=== PATIENT | male | born 1955 | race Caucasian/White ===

== ENCOUNTER 2023-08-12 11:19 | Emergency (ER) | payer MEDICARE, BC ==
[~2023-08-12 11:19] MED LIST: Aspirin 81 MG Tab.Chew PO ONE; Sodium Chloride 0.9% 1,000 ML ONE; Sodium Chloride 0.9% 10 ML Syringe FLUSH PRN
[2023-08-12 11:45] LABS: BASOPHILS ABSOLUTE AUTO 0.03 10^3/uL (0.00-0.50); BASOPHILS PERCENT AUTO 0.5 % (0-1); EOSINOPHILS ABSOLUTE AUTO 0.02 10^3/uL (0.00-1.50); EOSINOPHILS PERCENT AUTO 0.3 % (0-6); HEMATOCRIT 48.8 % (42.0-52.0); HEMOGLOBIN 16.5 g/dL (14.0-18.0); IMMATURE GRAN ABSOLUTE AUTO 0.01 10^3/uL (0.00-0.49); IMMATURE GRAN PERCENT AUTO 0.2 % (0.0-4.9); LYMPHOCYTES PERCENT AUTO 10.4 % (24-44); MEAN CORPUSCULAR HEMOGLOBIN 28.7 pg (27.0-32.0); MEAN CORPUSCULAR HGB CONC 33.8 g/dL (32.0-36.0); MEAN CORPUSCULAR VOLUME 84.9 fL (83.0-97.0); MONOCYTES ABSOLUTE AUTO 1.42 10^3/uL (0.00-1.50); MONOCYTES PERCENT AUTO 24.6 % (0-10); NEUTROPHILS ABSOLUTE AUTO 3.69 x10^3/uL (1.80-8.00); PLATELET COUNT,PLT 127 10^3/uL (150-400); RED BLOOD CELL COUNT 5.75 x10^6/uL (4.50-6.00); WHITE BLOOD CELL COUNT,WBC 5.8 10^3/uL (4.0-11.0)
[2023-08-12 11:53] LABS: INR 1.19 (0.92-1.18); PROTHROMBIN TIME 12.2 SEC (9.3-11.3)
[2023-08-12] MEDS ORDERED: Acetaminophen 325 MG Tab PO ONE (11:56)
[2023-08-12 12:09] LABS: ALBUMIN 3.8 g/dL (3.4-5.0); BILIRUBIN TOTAL 0.6 mg/dL (0.0-1.0); CALCIUM 8.3 mg/dL (8.4-10.1); CREATININE 1.2 mg/dL (0.7-1.3); EST CRCL DRUG DOSING (CG) 56.61 mL/min; MAGNESIUM 1.7 mg/dL (1.8-2.4); POTASSIUM,K 4.1 mEq/L (3.5-5.0); TSH ULTRASENSITIVE 0.86 uIU/mL (0.36-5.60)
[2023-08-12] MEDS ORDERED: Iopamidol 755 Mg/ML 100 ML Bottle IVPUSH ONE (12:25)
[2023-08-12 13:41] LABS: INFLUENZA A NAA NEGATIVE (NEGATIVE); INFLUENZA B NAA NEGATIVE (NEGATIVE); RESPIRATORY SYNCYTIAL VIR NAA NEGATIVE (NEGATIVE)
[2023-08-12 13:43] LABS: CORONAVIRUS COVID-19 NAA POSITIVE (NEGATIVE)
[2023-08-12] MEDS ORDERED: Nirmatrelvir/Ritonavir 300 MG/100 MG Dose Pack ONE (15:28)
[2023-08-12] MEDS ORDERED: Nirmatrelvir/Ritonavir 300 MG/100 MG Dose Pack PO SCH (20:00)
== END 2023-08-12 16:00 | disposition home or self-care (01) ==
LOC: CC.ED 11:19
DX: U07.1 COVID-19 (principal); I69.30 Unspecified sequelae of cerebral infarction; I10 Essential (primary) hypertension
CPT/HCPCS: 0241U; 36415; 70450; 70496; 70498; 80053; 83735; 84443; 84484; 85025; 85610; 93005; 99284; 99285; A9270-GY; Q9967

== ENCOUNTER 2024-06-30 07:05 | Emergency (ER) | payer BC, MEDICARE ==
[2024-06-30 07:34] LABS: BASOPHILS ABSOLUTE AUTO 0.07 10^3/uL (0.00-0.50); BASOPHILS PERCENT AUTO 0.8 % (0-1); EOSINOPHILS ABSOLUTE AUTO 0.18 10^3/uL (0.00-1.50); HEMATOCRIT 52.6 % (42.0-52.0); HEMOGLOBIN 17.4 g/dL (14.0-18.0); IMMATURE GRAN ABSOLUTE AUTO 0.01 10^3/uL (0.00-0.49); IMMATURE GRAN PERCENT AUTO 0.1 % (0.0-4.9); LYMPHOCYTES ABSOLUTE AUTO 1.31 10^3/uL (0.60-5.00); LYMPHOCYTES PERCENT AUTO 14.7 % (24-44); MEAN CORPUSCULAR HEMOGLOBIN 28.9 pg (27.0-32.0); MEAN CORPUSCULAR HGB CONC 33.1 g/dL (32.0-36.0); MEAN CORPUSCULAR VOLUME 87.4 fL (83.0-97.0); MONOCYTES ABSOLUTE AUTO 1.18 10^3/uL (0.00-1.50); MONOCYTES PERCENT AUTO 13.3 % (0-10); NEUTROPHILS ABSOLUTE AUTO 6.15 x10^3/uL (1.80-8.00); NEUTROPHILS PERCENT AUTO 69.1 % (41-71); PLATELET COUNT,PLT 177 10^3/uL (150-400); RED BLOOD CELL COUNT 6.02 x10^6/uL (4.50-6.00); WHITE BLOOD CELL COUNT,WBC 8.9 10^3/uL (4.0-11.0)
[2024-06-30 07:48] LABS: ALANINE AMINOTRANSFERASE,ALT 80 U/L (12-78); ALBUMIN 3.8 g/dL (3.4-5.0); ALKALINE PHOSPHATASE 103 U/L (46-116); ASPARTATE AMNIOTRANSFERASE,AST 49 U/L (15-37); BILIRUBIN TOTAL 0.5 mg/dL (0.0-1.0); BLOOD UREA NITROGEN,BUN 19 mg/dL (7-18); CALCIUM 8.7 mg/dL (8.4-10.1); CARBON DIOXIDE,CO2 29 mmol/L (21-32); CHLORIDE,CL 106 mEq/L (98-106); CREATININE 1.3 mg/dL (0.7-1.3); EST CRCL DRUG DOSING (CG) 51.55 mL/min; GLUCOSE RANDOM 112 mg/dL (75-99); MAGNESIUM 2.2 mg/dL (1.8-2.4); POTASSIUM,K 4.3 mEq/L (3.5-5.0); PROTEIN TOTAL,TP 7.3 g/dL (6.4-8.2); SODIUM,NA 144 mEq/L (136-145)
[2024-06-30 07:49] LABS: C-REACTIVE PROTEIN < 0.50 mg/dL (<=0.50); ESTIMATED GFR 60 mL/min (>=60)
== END 2024-06-30 09:45 | disposition home or self-care (01) ==
LOC: CC.ED 07:05
DX: I95.1 Orthostatic hypotension (principal); I10 Essential (primary) hypertension; Z87.891 Personal history of nicotine dependence; Z79.899 Other long term (current) drug therapy; Z79.82 Long term (current) use of aspirin; W19.XXXA Unspecified fall, initial encounter
CPT/HCPCS: 36415; 70450; 71045; 80053; 83735; 84484; 85025; 86140; 93005; 93010; 99284; 99285